=== PATIENT | male | born 1990 | race Caucasian/White ===

== ENCOUNTER 2018-12-11 14:06 | Emergency (ER) | payer OTHER ==
[2018-12-11 14:43] VITALS: BP 131/77
--- NOTE | 2018-12-11 15:00 | UC ---
Dizzy HPI HPI Summary: 28 yo male with recent volatility of his blood sugar associated with headache and dizziness Feels mild SOB No CP no Abd pain states that this is how he feels prior to DKA hx DM x 18 yrs BS was 300 this AM - History Of Current Complaint Chief Complaint: UCGeneralIllness Stated Complaint: HEADACHE, LIGHTHEADED, SOB Time Seen by Provider: 12/11/18 14:48 Hx Obtained From: Patient Onset/Duration: Gradual Onset, Lasting Hours Timing: Constant Severity Initially: Mild Severity Currently: Severe Pain Intensity: 9 - GUEVARA Pain Scale Used: 0-10 Numeric Character: Lightheaded, Weak Aggravating Factor(s): Nothing Alleviating Factor(s): Nothing Associated Signs And Symptoms: Positive: Nausea, Decreased Oral Intake. Negative: Vomiting, Diaphoresis, Tinnitus, Chest Pain, SOB, Palpitations, Unsteady Gait, Visual Changes, Change In Medication, Change In Diet Related History: Similar Episode/Dx as - DKA - Allergies/Home Medications Allergies/Adverse Reactions: Allergies Allergy/AdvReac Type Severity Reaction Status Date / Time aspirin Allergy Unknown Vomiting Verified 12/11/18 14:27 doxycycline Allergy Unknown causes Verified 12/11/18 14:27 elavated blood surgar Home Medications: Home Medications Insulin Lispro [Admelog Solostar] 2.5 unit SQ PRN 12/11/18 [History] Long Acting Insulin ? Name 2 units BID 12/11/18 [History] PMH/Surg Hx/FS Hx/Imm Hx Previously Healthy: Yes Endocrine History: Diabetes - Surgical History Surgical History: None - Family History Known Family History: Positive: Hypertension - Social History Alcohol Use: Occasionally Substance Use Type: None Smoking Status (MU): Light Every Day Tobacco Smoker Type: Cigarettes Amount Used/How Often: 5 CIGS A DAY Cessation Counseling: Patient Advised to Stop Review of Systems All Other Systems Reviewed And Are Negative: Yes Constitutional: Positive: Negative Skin: Positive: Negative Eyes: Positive: Negative ENT: Positive: Negative Respiratory: Positive: Other - very mild dyspnea Cardiovascular: Positive: Negative Gastrointestinal: Positive: Nausea. Negative: Abdominal Pain, Vomiting, Diarrhea Genitourinary: Positive: Negative Motor: Positive: Negative Neurovascular: Positive: Negative Musculoskeletal: Positive: Negative Neurological: Positive: Headache Psychological: Positive: Negative Physical Exam Triage Information Reviewed: Yes Appearance: Well-Appearing, No Pain Distress, Well-Nourished Vital Signs: Initial Vital Signs Temp 98.3 F 12/11/18 14:33 Pulse 73 12/11/18 14:33 Resp 18 12/11/18 14:33 BP 131/77 12/11/18 14:33 Pulse Ox 97 12/11/18 14:33 Vital Signs Reviewed: Yes Eyes: Positive: Conjunctiva Clear, Other: - EOMI/PERRL, fundi -benign ENT: Positive: Hearing grossly normal, Uvula midline. Negative: Nasal congestion, Nasal drainage, Tonsillar exudate, Trismus, Muffled voice, Hoarse voice, Sinus tenderness Neck: Positive: Supple, Nontender, No Lymphadenopathy Respiratory: Positive: Lungs clear, Normal breath sounds, No respiratory distress, No accessory muscle use Cardiovascular: Positive: RRR, No Murmur Abdomen Description: Positive: Nontender, No Organomegaly. Negative: CVA Tenderness (R), CVA Tenderness (L) Musculoskeletal: Positive: ROM Intact, No Edema Neurological: Positive: Alert, Other: - CN2-12 intact, strenght 5/5, sensory intact, dtr ++ and equal bilaterally Psychological Exam: Normal Skin Exam: Normal Diagnostics - Laboratory Lab Results: UA ++ glucose - ketones BS 162 - Radiology No standard instances Radiology Interpretation Completed By: Radiologist Summary of Radiographic Findings: CT brain - - EKG Cardiac Rate: NL Cardiac Rhythm: Sinus: Normal Ectopy: None ST Segment: Normal Re-Evaluation - Re-Evaluation First Eval Re-Evaluation Time: 15:50 Change: Improved Comment: GUEVARA 6/10, wants to go home to get some sleep, does not want to go to ER Dizzy Course/Dx - Differential Dx/Diagnosis Provider Diagnosis: Headache, Dizziness, nonspecific Discharge - Sign-Out/Discharge Documenting (check all that apply): Patient Departure All imaging exams completed and their final reports reviewed: Yes - Discharge Plan Condition: Improved Disposition: HOME Patient Education Materials: Dizziness (ED), Acute Headache (ED) Forms: *Work Release Referrals: Jorge Kennedy MD [Primary Care Provider] - 1 Day (if not better) - Billing Disposition and Condition Condition: IMPROVED Disposition: Home
[2018-12-11] MEDS ORDERED: Ondansetron ODT TAB* 4 MG PO ONE (15:21)
[2018-12-11] MEDS ORDERED: Ketorolac INJ* 30 MG/ML 1 ML VIAL IM ONE (15:21)
== END 2018-12-11 15:57 | disposition home or self-care (01) ==
LOC: UCCORT 14:06
DX: R51 Headache (principal); R42 Dizziness and giddiness; E11.9 Type 2 diabetes mellitus without complications; Z79.4 Long term (current) use of insulin; F17.210 Nicotine dependence, cigarettes, uncomplicated
CPT/HCPCS: 70450; 81003; 93005; 96372; 99212; A9270-GY; G0463; J1885